=== PATIENT | male | born 1985 | race Caucasian/White ===

== ENCOUNTER 2023-02-07 06:12 | Day surgery (SDC) | payer BC ==
[2023-02-07] MEDS ORDERED: Xylocaine 1% Vial 30 ML PF IJ ONE (06:20)
[2023-02-07] MEDS ORDERED: Marcaine 0.5%/Epinephrine 10 ML ONE (06:20)
[2023-02-07] MEDS ORDERED: Marcaine Mpf 0.5% Vial 30 Ml ONE (06:23)
[2023-02-07] MEDS ORDERED: Lactated Ringers 1,000 ML IV ONE ×2 (06:58→08:40)
[2023-02-07] MEDS ORDERED: CEFAZOLIN 2 GM-D5W BAG** 2 GM/50 ML ML IV ONE (06:58)
[2023-02-07] MEDS ORDERED: CEFAZOLIN 2 GM-D5W BAG** 2 GM/50 ML ML IV SCH (07:00)
[2023-02-07 07:22] LABS: Absolute Neutrophil Ct (ANC) 2.87 x10^3/uL (1.4-6.9); BASOPHIL % 0.9 % (0.0-0.4); Basophil (Absolute #) 0.04 x10^3/uL (0-0.4); Eosinophil % 1.7 % (0.00-5.0); Eosinophil (Absolute #) 0.08 x10^3/uL (0-0.5); Hematocrit 47.2 % (42-50); Hemoglobin 15.2 g/dL (12.5-18.0); IMMATURE GRAN # 0.01 x10^3u/L (0.00-0.03); IMMATURE GRAN % 0.2 % (0.00-0.4); Lymphocyte (Absolute #) 1.23 x10^3/uL (1.0-4.6); Lymphocytes % 26.6 % (24.0-44.0); Mean Cell Volume 86.4 fL (78-100); Mean Corpuscular Hemoglobin 27.8 pg (26-32); Mean Corpuscular Hgb Concent. 32.2 g/dL (32-36); Mean Platelet Volume 8.8 fL (7.5-11.0); Monocytes % 8.6 % (0.0-12.0); Platelet Count 384 x10^3/uL (150-450); Red Blood Count 5.46 x10^6/uL (4.1-5.6); Red Cell Distribution Width 13.1 % (11.5-14.0); White Blood Count 4.6 x10^3/uL (4.0-10.5)
[2023-02-07] MEDS ORDERED: Lactated Ringers 1,000 ML IV SCH (07:30)
[2023-02-07 07:36] LABS: ALBUMIN 4.3 g/dL (3.5-5.0); ALKALINE PHOSPHATASE 89 U/L (38-126); ANION GAP 16.9 MEQ/L (5-15); BLOOD UREA NITROGEN 12 mg/dL (9-20); CHLORIDE 105 mmol/L (98-107); Calcium 8.5 mg/dL (8.4-10.2); Carbon Dioxide 26 mmol/L (22-30); Creatinine 1 0.87 mg/dL (0.66-1.25); EST GLOMERULAR FILTRATION RATE > 60.0 ML/MIN; Glucose 97 mg/dL (74-106); Potassium 4.2 mmol/L (3.5-5.1); SGOT/AST 34 U/L (17-59); SGPT/ALT 38 U/L (0-50); SODIUM 144 mmol/L (137-145); Total Protein 7.6 g/dL (6.3-8.2)
[2023-02-07 07:38] LABS: INR 0.94 (0.8-3.0); PROTIME 10.3 SECONDS (9.4-12.5); PTT 27.5 SECONDS (25.1-36.5)
[2023-02-07] MEDS ORDERED: DIPRIVAN 200 MG/20 ML IV ONE (07:44)
[2023-02-07] MEDS ORDERED: Decadron 4 MG INJ ONE (07:44)
[2023-02-07] MEDS ORDERED: Zofran 4 MG/2 ML VIAL ONE (07:44)
[2023-02-07] MEDS ORDERED: Xylocaine-Mpf 2% 5 Ml Vial ONE (07:44)
[2023-02-07] MEDS ORDERED: SUBLIMAZE 100 MCG/2 ML ONE ×2 (07:46→10:07)
[2023-02-07] MEDS ORDERED: Quelicin Fliptop 200 MG/10 ML ONE (07:47)
[2023-02-07] MEDS ORDERED: Versed 2 MG/2 ML Injection ONE (07:56)
[2023-02-07] MEDS ORDERED: OFIRMEV 100 ML IV ONE (07:59)
[2023-02-07] MEDS ORDERED: Magnesium Sulfate 1 GM/2 ML VIAL ONE (07:59)
[2023-02-07] MEDS ORDERED: Pre-Attached Lta Kit TP ONE (07:59)
[2023-02-07] MEDS ORDERED: DEXMEDETOMIDINE 80 MCG/20ML-NS IV ONE (08:19)
[2023-02-07] MEDS ORDERED: Ketamine HCl 50 MG/ML ONE (08:23)
[2023-02-07] MEDS ORDERED: KEFZOL 1 GM ONE (08:25)
[2023-02-07] MEDS ORDERED: PHENYLEPHRINE HCL ONE (08:54)
[2023-02-07] MEDS ORDERED: TORAdol 30 mg Injection ONE (10:00)
[2023-02-07] MEDS ORDERED: Hydromorphone 1 mg/ml Injection ONE (10:07)
[2023-02-07] MEDS ORDERED: TRANDATE 20 MG/4 ML SYRINGE IV ONE (10:16)
[2023-02-07 11:03] VITALS: BP 152/99; PULSE 77; O2SAT 94
--- NOTE | 2023-02-07 11:36 | XRAY ---
Indication: Left foot [place] procedure, posterior tibial tendon debridement, and advancement flexor digitorum longus transfer. Intraoperative fluoroscopy provided for 52 seconds. 10 digital spot images submitted for interpretation demonstrates instrumentation navicular bone. Correlate with intraoperative findings/report.
--- NOTE | 2023-02-07 14:47 | OP ---
SURGERY DATE: 02/07/2023 SURGERY TIME: 803 PREOPERATIVE DIAGNOSIS: 1. LEFT OS NAVICULARE 2. POSTERIOR TIBIAL TENDON DYSFUNCTION. 3. TENOSYNOVITIS POSTERIOR TIBIAL TENDON LEFT FOOT. POSTOPERATIVE DIAGNOSIS: 1. LEFT OS NAVICULARE 2. POSTERIOR TIBIAL TENDON DYSFUNCTION. 3. TENOSYNOVITIS POSTERIOR TIBIAL TENDON LEFT FOOT. PROCEDURE: 1. Excision of os naviculare. 2. Posterior tibial tendon debridement with advancement. SURGEON: Rivas Enriquez D.P.M. AUDITOR IN CHARGE: None. ANESTHESIA: General plus a postoperative local block at the ankle. See injectables for details. HEMOSTASIS: A thigh tourniquet set to 350 mm Hg for 70 total tourniquet minutes. ESTIMATED BLOOD LOSS: Less than 5 cc. MATERIALS: Misbah 1.45 JuggerKnot X 2 with broadband, 4-0 Monocryl, 2-0 Vicryl, and 3-0 Nylon, and one Suturegard. INJECTABLES: 30 cc of a 1:1 mixture of 1% Lidocaine plain, 0.5% Bupivicaine plain injected in an ankle block type fashion. INDICATIONS FOR PROCEDURE: Meet is a very pleasant 37 y/o male who has been seen by my service for the previous 2 months. Patient has been having some bilateral pain that has started June of last year. 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 He noticed a significant increase in the amount of pain that he was experiencing. It started to his left foot which got worse as time went on and his right foot was soon thereafter to follow. Patient's presentation was suspicious given his x-rays showed some excessively large os naviculares with gorilla form naviculars. From that standpoint, inflammatory arthropathy testing was performed and patient was found to have hyperuricemia and an elevated PACO. Patient was advised during this period of time to remain in a Cam boot and progress with some physical therapy. At that time, patient was unable to proceed with the physical therapy. However, he was willing to discuss his use of anti-inflammatories and the use of a Cam boot. Over the course of several weeks, patient had a significant amount of pain and wished to proceed with surgical intervention without having to have his consultation with the end lathe operator. The patient understands that we will proceed with surgical intervention in order to eliminate the pain associated with the os naviculare. However, in order to get complete relief, he needs to proceed with the rheumatology consult. The patient understands all risks, complications, and benefits of surgical intervention including, but not limited to, infection, hematoma, seroma, possibility of delayed wound healing, non-wound healing, possibility of failure of surgical intervention, possibility of irritating hardware, in this case in relation to the suture and the knots. The patient understands all this and wishes to proceed with surgical intervention at this time. DESCRIPTION OF PROCEDURE: The patient was brought in to the OR and placed on the OR table in the supine position. At this time, general anesthesia was administered until the patient was sedated. On the left thigh, a well-padded thigh tourniquet was applied and the tourniquet was set to 350 mm Hg. It was at that time, the left lower extremity was prepped and draped in the typical sterile fashion and lowered onto the surgical field. At this time, attention was directed to the medial aspect of the left foot where the navicular was palpated seeming to be extraordinarily large. The dorsal and plantar margins were identified at this time. An incision bisecting these 2 planes was then drawn out. The tourniquet was inflated after Esmarch was utilized to exsanguinate the leg. At this time, a 10 blade was utilized to make a skin incision very quickly switching to blunt dissection with a pair of iris scissors. From that standpoint, this was deepened along the plane until the navicular was encountered fairly superficially. A large cuff at the dorsal aspect was maintained making an incision and keeping the cuff at the plantar aspect intact. Following this, the os naviculare was piecemealed with multiple cuts being careful not to violate the talonavicular joint. This was handed off the field once completely resected and passed off the field for pathologic assessment. At this time, copious amounts of sterile saline were utilized to flush the surgical site. Following this, a good amount of time was utilized to clean up the tenosynovitis as well as the diseased tendon within the sheath as well as intratendinous to the insertion of the posterior tibial tendon at the navicular. Following this, two 1.45 JuggerKnots with broadband were introduced and doffed into the navicular making sure not to violate the joint surface. Following this, they were retrograded in a modified [place] stitch opposing the posterior tibial tendon remnant to the face of the freshly cut navicular bone. At this time, copious amounts of sterile saline were utilized to flush the surgical site. The capsule was then repaired. This was utilizing 4-0 Monocryl. 4-0 Monocryl was then utilized to coapt the subcutaneous edges in a simple buried type fashion and a horizontal mattress 3-0 Nylon was then utilized to coapt the skin edges in a horizontal mattress type fashion. Following this, the tourniquet was let down. 70 total tourniquet minutes was noted. At this time, an injection consisting of 30 cc of a 1:1 mixture of 1% Lidocaine plain and 0.5% Bupivicaine plain was injected in an ankle block type fashion to the left ankle and a dressing consisting of betadine, Adaptic, 4 X 4, Kerlix, and a well-padded posterior splint was applied to the patient's left leg. The patient was then reversed from anesthesia and returned to the PACU with vital signs stable and vascular status intact. The patient handled the anesthesia as well as procedure without significant complication. POSTOPERATIVE ORDERS: As indicated in the patient's discharge chart.
== END 2023-02-07 11:20 | disposition home or self-care (01) ==
LOC: SDC 06:12
PROVIDERS: ATTEND Podiatrist Foot & Ankle Surgery
DX: M21.6X2 Other acquired deformities of left foot (principal); M76.822 Posterior tibial tendinitis, left leg; M65.872 Other synovitis and tenosynovitis, left ankle and foot
CPT/HCPCS: 27658; 28238; 36415; 73630; 76000; 80053; 85025; 85610; 85730; 93005; C1713; J0330; J0690; J1100; J1170; J1885; J2001; J2250; J2370; J2405; J2704; J3010; J3475

== ENCOUNTER 2023-03-21 05:56 | Day surgery (SDC) | payer BC ==
[2023-03-21] MEDS ORDERED: Marcaine Mpf 0.5% Vial 30 Ml ONE (06:26)
[2023-03-21] MEDS ORDERED: Xylocaine 1% Vial 30 ML PF IJ ONE (06:26)
[2023-03-21] MEDS ORDERED: Lactated Ringers 1,000 ML IV SCH (06:30)
[2023-03-21] MEDS ORDERED: KEFZOL 1 GM** 3 G in Sodium Chloride 0.9% 50 ML 50 ML IV SCH (06:30)
[2023-03-21] MEDS ORDERED: Versed 2 MG/2 ML Injection IV PRN (06:40)
[2023-03-21] MEDS ORDERED: Pepcid 20 MG VIAL IV ONE (06:40)
[2023-03-21 06:42] LABS: Hematocrit 48.6 % (42-50); Hemoglobin 15.6 g/dL (12.5-18.0); Mean Cell Volume 86.5 fL (78-100); Mean Corpuscular Hemoglobin 27.8 pg (26-32); Mean Corpuscular Hgb Concent. 32.1 g/dL (32-36); Mean Platelet Volume 9.1 fL (7.5-11.0); Platelet Count 372 x10^3/uL (150-450); Red Blood Count 5.62 x10^6/uL (4.1-5.6); Red Cell Distribution Width 13.8 % (11.5-14.0); White Blood Count 7.4 x10^3/uL (4.0-10.5)
[2023-03-21 06:50] LABS: ALBUMIN 4.4 g/dL (3.5-5.0); ALKALINE PHOSPHATASE 94 U/L (38-126); ANION GAP 16.1 MEQ/L (5-15); BLOOD UREA NITROGEN 17 mg/dL (9-20); CHLORIDE 104 mmol/L (98-107); Calcium 8.5 mg/dL (8.4-10.2); Carbon Dioxide 25 mmol/L (22-30); Creatinine 1 0.93 mg/dL (0.66-1.25); EST GLOMERULAR FILTRATION RATE > 60.0 ML/MIN; Glucose 90 mg/dL (74-106); Potassium 3.9 mmol/L (3.5-5.1); SGOT/AST 42 U/L (17-59); SGPT/ALT 68 U/L (0-50); SODIUM 141 mmol/L (137-145)
[2023-03-21 06:51] LABS: INR 0.93 (0.8-3.0); PROTIME 10.2 SECONDS (9.4-12.5); PTT 26.9 SECONDS (25.1-36.5)
[2023-03-21] MEDS ORDERED: Xylocaine-Mpf 2% 5 Ml Vial ONE ×2 (07:04→08:25)
[2023-03-21] MEDS ORDERED: DIPRIVAN 200 MG/20 ML IV ONE (07:04)
[2023-03-21] MEDS ORDERED: Zofran 4 MG/2 ML VIAL ONE (07:04)
[2023-03-21] MEDS ORDERED: Decadron 4 MG INJ ONE ×2 (07:04→08:25)
[2023-03-21] MEDS ORDERED: SUBLIMAZE 250 MCG/5 ML ONE (07:06)
[2023-03-21] MEDS ORDERED: TORAdol 30 mg Injection ONE (07:38)
[2023-03-21] MEDS ORDERED: PHENYLEPHRINE HCL ONE (07:40)
[2023-03-21] MEDS ORDERED: Lactated Ringers 1,000 ML IV ONE (07:44)
[2023-03-21] MEDS ORDERED: DEXMEDETOMIDINE 80 MCG/20ML-NS IV ONE (08:25)
[2023-03-21] MEDS ORDERED: Marcaine 0.5%/Epinephrine 10 ML ONE (08:25)
--- NOTE | 2023-03-21 08:55 | XRAY ---
Indication: Right foot accessory ossicle resection. Partial navicular resection. Intraoperative fluoroscopy provided for 1 minute 51 seconds. 11 digital spot images submitted for interpretation ultimately demonstrates partial resection medial aspect navicular bone. Correlate with intraoperative findings/report.
[2023-03-21 10:09] VITALS: BP 135/86; PULSE 91; O2SAT 94
--- NOTE | 2023-03-21 12:13 | OP ---
SURGERY DATE/TIME: 03/21/2023 0707 PREOPERATIVE DIAGNOSES: 1) Right os naviculare. 2) Posterior tibial tendon dysfunction. 3) Tenosynovitis of posterior tibial tendon right foot. POSTOPERATIVE DIAGNOSES: 1) Right os naviculare. 2) Posterior tibial tendon dysfunction. 3) Tenosynovitis of posterior tibial tendon right foot. PROCEDURES: 1) Excision of os naviculare. 2) Posterior tibial tendon debridement with advancement. SURGEON: Rivas Enriquez DPM. TRIMMER SORTER: None. ANESTHESIA: General plus postoperative popliteal and saphenous block. HEMOSTASIS: Thigh tourniquet set to 350 mm of Mercury for 60 total tourniquet minutes. ESTIMATED BLOOD LOSS: Less than 5 cc. MATERIALS: Misbah 1.5 JuggerKnot x2 with BroadBand 4-0 Monocryl, 2-0 Vicryl, 3-0 Nylon and one Suturegard. INJECTABLES: See anesthesia report for details. INDICATION FOR SURGERY: Meet is a very pleasant 37-year-old male who has been seen by my service over the course of the last three months. He has been having some bilateral foot pain that started in June 2022. 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 He noticed a significant increase in the amount of pain that he was experiencing to the bilateral lower extremity which first started with his left foot and then proceeded to start aggravating his right. On initial presentation I was suspicious of inflammatory arthritis with consistent bilateral pain simultaneously. He was positive with elevated PACO at a critical area as well as hypoglycemia. After having been treated for these issues, the patient did not have a significant relief in the symptomatology and wished to proceed with surgical intervention. His left foot was more painful at that time and he decided to proceed with surgical intervention to the left. At this time he is approximately six weeks out and he is doing excellent, back to weightbearing in an athletic shoe without any pain to the left lower extremity and would like to proceed to the right as this pain is fairly excruciating for him. We are on a timeline of twelve weeks where he is off from work and he would like to return to work at that twelve week raymond which I do believe is reasonable request. The patient does understand that he needs to proceed with rheumatology consult. The patient understands all risks, complications and benefits of the surgical intervention at this time including but not limited to infection, hematoma, seroma, possibility of delayed wound healing or nonwound healing and possibility failure of surgical intervention, possibility of irritating hardware and in this case in relation to suture knots and suture. The patient understands all of this and wishes to proceed with surgical intervention. DESCRIPTION OF PROCEDURE: The patient was brought in to the OR and placed on the OR table in the supine position. At this time, general anesthesia was administered until the patient was sedated. On the right thigh a well-padded thigh tourniquet was applied and the tourniquet was set to 350 mm of Mercury. At that time, the right lower extremity was prepped and draped in the typical sterile fashion and lowered onto the surgical field. At this time, attention was directed to the medial aspect of the right foot where the naviculare was palpated seeming to be extraordinarily large. The dorsal and plantar margins were identified at this time. An incision was made bisecting these two planes that was then drawn out. The tourniquet was inflated after Esmarch was utilized to exsanguinate the leg. At this time, a 10 blade was utilized to make a skin incision very quickly switching to blunt dissection with a pair of iris scissors and from that standpoint deepening along the soft tissue plane until the navicular was encountered fairly superficially. A large cuff of the dorsal aspect of the posterior tibial tendon was maintained making an incision and keeping the cuff intact from the plantar aspect. Below this the os naviculare was piecemealed with multiple cuts being careful not to violate the talonavicular joint. This was handed off the field once completely resected and passed off the field for pathologic assessment. At this time, copious amounts of sterile saline were utilized to flush the surgical field. Following this, a good amount of time was utilized to clean the tendon from tenosynovitis as well as calcifications within the tendon sheath. The intratendinous area was debrided significantly and repaired utilizing PDS. The posterior tibial tendon was then reattached to the navicular utilizing two - 1.5 JuggerKnots with BroadBand that were introduced and docked into the navicular to make sure not to violate the joint surface. Following this, they were retrograded in a modified Liz stitch to the opposing posterior tibial tendon remnant to the face of the freshly cut navicular bone. At this time, copious amounts of sterile saline were utilized to flush the surgical site. 4-0 Monocryl utilized to coapt the subcutaneous edges in a simple buried-type fashion, 3-0 Nylon was utilized in a horizontal mattress-type fashion to coapt the skin edges in a horizontal mattress-type fashion. Following this a Suturegard was then utilized to relieve the tension on the surgical incision. Tourniquet was let down at this time at a total of 60 total tourniquet minutes. Following this, the leg was cleansed with sterile saline and dried. A dressing consisting of betadine, Adaptic, 4x4, Kerlix and a well-padded posterior splint with Sugar-Tong was applied to the patient's right lower extremity. Following this the patient was provided a popliteal and saphenous block. The patient was then reversed from anesthesia and returned to the PACU with vital signs stable and vascular status intact. The patient handled the anesthesia as well as procedure without significant complication. Postoperative orders as indicated in the patient's discharge chart.
== END 2023-03-21 10:20 | disposition home or self-care (01) ==
LOC: SDC 05:56
PROVIDERS: ATTEND Podiatrist Foot & Ankle Surgery
DX: Q66.81 Congenital vertical talus deformity, right foot (principal); M76.821 Posterior tibial tendinitis, right leg; M65.871 Other synovitis and tenosynovitis, right ankle and foot
CPT/HCPCS: 28238; 36415; 73630; 76000; 76937; 80053; 85027; 85610; 85730; C1713; 64450; 76942; J0690; J1100; J1885; J2001; J2250; J2370; J2405; J2704; J3010

== ENCOUNTER 2023-04-29 11:20 | Emergency (ER) | payer BC ==
--- NOTE | 2023-04-29 11:48 | ERPHSYRPT ---
- History of Present Illness Time Seen by Provider: 04/29/23 11:43 Source: patient Physician History: Patient 37-year-old male sent to our ED by physical therapy for evaluation. Patient 6 weeks postop foot surgery. Patient followed up with physical therapy today. Blood pressure was taken. It was found to be elevated. Patient asymptomatic. Patient sent to our ED for evaluation. Patient has no complaints. Patient has history of hypertension. Patient currently managed with metoprolol lisinopril hydrochlorothiazide. Patient took his medications this morning. Patient also states he is under significant stress. Patient voices no other complaints or concerns at this time. Portions of this note were created with voice recognition technology. There may be grammatical, spelling, punctuation or sound alike errors Timing/Duration: today Severity: mild Modifying Factors: Improves With: nothing Associated Symptoms: denies symptoms Allergies/Adverse Reactions: No Known Drug Allergies Allergy (Verified 04/29/23 11:35) Home Medications: Aspirin EC 325 mg [Ecotrin 325 MG] 325 mg PO DAILY 03/18/23 [History] allopurinoL [Allopurinol] 1 tab PO DAILY 03/18/23 [History] Aspirin EC 81 mg [Ecotrin 81 mg] 1 tab PO DAILY 04/29/23 [History] Lisinopril 20 mg [Zestril 20 MG] 1 tab PO DAILY 04/29/23 [History] Lisinopril/Hydrochlorothiazide [Lisinopril-Hctz 20-12.5 mg Tab] 1 tab PO DAILY 04/29/23 [History] Metoprolol Succinate 1 tab PO HS 04/29/23 [History] - Review of Systems Constitutional: No Symptoms, No Fever, No Chills Eyes: No Symptoms Ears, Nose, & Throat: No Symptoms Respiratory: No Symptoms, No Cough, No Dyspnea Cardiac: No Symptoms, No Chest Pain, No Edema, No Syncope Abdominal/Gastrointestinal: No Symptoms, No Abdominal Pain, No Nausea, No Vomiting, No Diarrhea Genitourinary Symptoms: No Symptoms, No Dysuria Musculoskeletal: No Symptoms, No Back Pain, No Neck Pain Skin: No Symptoms, No Rash Neurological: No Symptoms, No Dizziness, No Focal Weakness, No Sensory Changes Psychological: No Symptoms Endocrine: No Symptoms Hematologic/Lymphatic: No Symptoms Immunological/Allergic: No Symptoms All Other Systems: Reviewed and Negative - Past Medical History Pertinent Past Medical History: Yes Neurological History: Peripheral Neuropathy ENT History: No Pertinent History Cardiac History: Hypertension Respiratory History: No Pertinent History Endocrine Medical History: No Pertinent History Musculoskeletal History: No Pertinent History, Other GI Medical History: No Pertinent History History: No Pertinent History Psycho-Social History: No Pertinent History Male Reproductive Disorders: No Pertinent History Other Medical History: BEING TESTED FOR RA. - Past Surgical History Past Surgical History: Yes Neuro Surgical History: No Pertinent History Cardiac: No Pertinent History Respiratory: No Pertinent History Gastrointestinal: No Pertinent History Genitourinary: No Pertinent History Musculoskeletal: No Pertinent History Male Surgical History: No Pertinent History Other Surgical History: sinus surgery - Social History Smoking Status: Never smoker Exposure to second hand smoke: No Drug Use: none - Nursing Vital Signs Nursing Vital Signs: Initial Vital Signs Pulse Rate 98 H 04/29/23 11:33 Respiratory Rate 13 04/29/23 11:33 Blood Pressure 174/100 04/29/23 11:33 O2 Sat by Pulse Oximetry 100 04/29/23 11:33 Pain Scale Pain Intensity 0 - Physical Exam General Appearance: no apparent distress, alert Eye Exam: PERRL/EOMI, eyes nml inspection Ears, Nose, Throat Exam: normal ENT inspection, TMs normal, pharynx normal, moist mucous membranes Neck Exam: normal inspection, non-tender, supple, full range of motion Respiratory Exam: normal breath sounds, lungs clear, airway intact, No respiratory distress Cardiovascular Exam: regular rate/rhythm, normal heart sounds, normal peripheral pulses Gastrointestinal/Abdomen Exam: soft, normal bowel sounds, No tenderness, No mass Back Exam: normal inspection, normal range of motion, No CVA tenderness, No vertebral tenderness Extremity Exam: normal inspection, normal range of motion, pelvis stable Neurologic Exam: alert, oriented x 3, cooperative, normal mood/affect, nml cerebellar function, nml station & gait, sensation nml, No motor deficits Skin Exam: normal color, warm, dry, No rash Lymphatic Exam: No adenopathy SpO2 Interpretation: normal SpO2: 100 O2 Delivery: Room Air - Course Nursing assessment & vital signs reviewed: Yes - Progress Progress: improved Progress Note: 37-year-old male with a history of hypertension currently managed with metoprolol lisinopril and hydrochlorothiazide. Patient had an elevated blood pressure check and physical therapy. Patient sent to our ED. Patient asymptomatic. Patient blood pressure down to 168/93. Patient remains asymptomatic. No indication for work-up. No chest pain or shortness of breath. No nausea vomiting or diaphoresis. Patient functioning at his baseline. It appears that patient's blood pressure medication is now beginning to work as patient's blood pressure is decreasing back towards his baseline. Complexity of problem addressed is low acute uncomplicated. Complex of data reviewed and analyzed is none. No specialized testing ordered. Diagnosis made based on history and physical examination. Risk of complication and or risk morbidity/mortality patient management is minimal. No medication administered. Patient monitored. Patient blood pressure monitored with an automatic blood pressure cuff. No other intervention rendered. We will discharge home. Patient agrees to follow-up with his primary care doctor within 48 hours for reevaluation. Patient voices no other complaints or concerns at this time. Vital stable. Blood pressure improving. Time spent to discharge patient is approximately 10 minutes. Portions of this note were created with voice recognition technology. There may be grammatical, spelling, punctuation or sound alike errors 04/29/23 11:55 Counseled pt/family regarding: diagnosis, need for follow-up, rad results - Departure Departure Disposition: Home Clinical Impression: Essential hypertension Condition: Stable Critical Care Time: No Referrals: BERNABE SALVADOR NP [Primary Care Provider] - Follow up/PCP as directed Additional Instructions: Discharge/Care Plan ISAAC CHRISTIAN was seen on 04/29/23 in the Emergency Room. The patient was counseled regarding Diagnosis,Lab results, Imaging studies, need for follow up and when to return to the Emergency Room. Prescriptions given: Discharge Note I have spoken with the patient and/or caregivers. I have explained the patient's condition, diagnosis and treatment plan based on the information available to me at this time. I have answered the patient's and/or caregiver's questions and a ddressed any concerns. The patient and/or caregivers have as good understanding of the patient's diagnosis, condition and treatment plan as can be expected at this point. The vital signs have been stable. The patient's condition is stable and appropriate for discharge from the emergency department. The patient will pursue further outpatient evaluation with the primary care physician or other designated or consulting physician as outlined in the discharge instructions. The patient and/or caregivers are agreeable to this plan of care and follow-up instructions have been explained in detail. The patient and/or caregivers have received these instruction. The patient/and or caregivers are aware that any significant change in condition or worsening of symptoms should prompt an immediate return to this or the closest emergency department or call 911.
[2023-04-29 11:50] VITALS: O2SAT 100
[2023-04-29 12:20] VITALS: BP 152/95; PULSE 82
== END 2023-04-29 12:17 | disposition home or self-care (01) ==
LOC: ED 11:20
DX: I10 Essential (primary) hypertension (principal); Z79.899 Other long term (current) drug therapy
CPT/HCPCS: 99281